=== PATIENT | female | born 1960 | race Caucasian/White ===

== ENCOUNTER 2025-02-08 09:42 | Emergency (ER) | payer MEDICARE, SELFPAY ==
[2025-02-08 09:49] VITALS: BP 117/95; PULSE 100; TEMP 36.8; O2SAT 97; BMI 28.9
--- NOTE | 2025-02-08 10:11 | ED_ITS ---
HPI HPI - General Adult General Chief complaint: Upper Respiratory Infection Stated complaint: FLU LIKE SYMPTOMS Time Seen by Provider: 02/08/25 09:57 Source: patient Mode of arrival: walk-in Limitations: no limitations History of Present Illness HPI narrative: The patient presented to us with sinus congestion in addition to the fact that she also have a cough she is a smoker of less than a pack of cigarette daily The patient also has been having wheezing bilaterally She also is complaining of a cough that is productive Fever and chills at home that resolved No chest pain no abdominal pain no nausea no vomiting Related Data Home Medications ?Medication ?Instructions ?Recorded ?Confirmed albuterol sulfate 90 mcg/actuation inhalation 02/08/25 aerosol inhaler atorvastatin 40 mg tablet mg 02/08/25 losartan 50 mg-hydrochlorothiazide tab 02/08/25 12.5 mg tablet paroxetine HCl 20 mg tablet mg PO 02/08/25 Previous Rx's ?Medication ?Instructions ?Recorded doxycycline hyclate 100 mg tablet 100 mg PO BID 7 days #14 tabs 02/08/25 prednisone 20 mg tablet 40 mg (2 x 20 mg) PO DAILY 5 days 02/08/25 #10 tabs Allergies Allergy/AdvReac Type Severity Reaction Status Date / Time erythromycin base AdvReac Nausea Verified 02/08/25 09:49 Opioid HPI Opioid Management Most Recent Opioid Data: Last Pain Scale 8 Today, 09:49 Review of Systems ROS Status of ROS 10 or more systems reviewed and unremark able except as noted in history and below PFSH PFSH Social History Little interest or pleasure in doing things: not at all Feeling down, depressed, or hopeless: not at all Exam Narrative Exam Narrative: Nurses notes and vital signs reviewed and patient is not hypoxic. General: Well-appearing and in no apparent distress. Skin: Warm, dry, no pallor noted. No rash. Head: Normocephalic, atraumatic. Neck: Supple, non-tender. Eye: Pupils are equal, round and EOMI. No scleral icterus. Ears, Nose, Mouth, and Throat: TM are clear, no nasal mucosal hypertrophy. She have congested nasal mucosa and enlarged turbinates on the left side Cardiovascular: Regular Rate and Rhythm without murmur, gallop or rub. Respiratory: No accessory muscle use or respiratory distress. Lungs distant expiratory lung wheezes bilaterally Chest Wall: no tenderness Back: No midline thoracic or lumbar vertebral tenderness. No CVA tenderness Musculoskeletal: normal ROM, no calf or popliteal tenderness, no lower extremity edema/swelling GI: Abdomen is soft, non-distended. Normal bowel sounds. No masses appreciated. No tenderness to palpation. No rebound, guarding, or rigidity noted. Neurological: A&O x4. No cranial nerve dysfunction observed. No truncal ataxia. Moves all extremities. Sensation intact. Psychiatric: Cooperative and interactive. Normal mood and affect. Constitutional Vital Signs, click to edit/add: Last Vital Signs Temp 98.3 F 02/08/25 09:49 Pulse 100 H 02/08/25 09:49 Resp 18 02/08/25 09:49 BP 117/95 H 02/08/25 09:49 Pulse Ox 97 02/08/25 09:49 O2 Del Method Room Air 02/08/25 09:49 Course Vital Signs Vital signs: Vital Signs Temperature 98.3 F 02/08/25 09:49 Pulse Rate 100 H 02/08/25 09:49 Respiratory Rate 18 02/08/25 09:49 Blood Pressure 117/95 H 02/08/25 09:49 Pulse Oximetry 97 02/08/25 09:49 Oxygen Delivery Method Room Air 02/08/25 09:49 Temperature 98.3 F 02/08/25 09:49 Pulse Rate 100 H 02/08/25 09:49 Respiratory Rate 18 02/08/25 09:49 Blood Pressure 117/95 H 02/08/25 09:49 Pulse Oximetry 97 02/08/25 09:49 Oxygen Delivery Method Room Air 02/08/25 09:49 Medical Decision Making [facility] Narrative Medical decision making narrative: The patient is a smoker of less than 1 pack of cigarette daily and she is mostly have COPD as she use inhaler at home her presentation right now is mostly to COPD exacerbation she was started on doxycycline as well as prednisone She did not want to wait for any breathing treatment because she have the machine at home and she would just continue taking her breathing treatment every 6 hours as needed for the next few days The patient to follow-up with the primary care within 2 to 3 days and to come back to the ER in case of any worsening of the current symptoms or any new symptoms or concerns Discharge Plan Discharge Chief Complaint: Upper Respiratory Infection Clinical Impression: Sinusitis, COPD exacerbation Patient Disposition: Home, Self-Care Time of Disposition Decision: 10:11 Condition: Good Prescriptions / Home Meds: New prednisone 20 mg tablet 40 mg PO DAILY 5 Days Qty: 10 0RF doxycycline hyclate 100 mg tablet 100 mg PO BID 7 Days Qty: 14 0RF No Action atorvastatin 40 mg tablet paroxetine HCl 20 mg tablet PO albuterol sulfate 90 mcg/actuation HFA aerosol inhaler INHALATION losartan-hydrochlorothiazide 50-12.5 mg tablet Print Language: Hungarian Instructions: Sinusitis (ED), COPD (Chronic Obstructive Pulmonary Disease) (DC) Referrals: PIERRE KNIGHT [Primary Care Provider, Family Practice] - 1 week Discharge Date/Time: 02/08/25 10:33
== END 2025-02-08 10:33 | disposition home or self-care (01) ==
PROVIDERS: Emergency Provider Emergency Medicine; PCP Family Medicine
DX: J44.1 Chronic obstructive pulmonary disease with (acute) exacerbation (principal); J32.9 Chronic sinusitis, unspecified; F17.210 Nicotine dependence, cigarettes, uncomplicated
CPT/HCPCS: 99283